=== PATIENT | male | born 1990 | race Two or more races ===

== ENCOUNTER 2018-08-30 07:16 | Emergency (ER) | payer OTHER ==
[2018-08-30 07:25] VITALS: BP 159/76
--- NOTE | 2018-08-30 07:37 | EDPHY ---
H & P Stated Complaint: hit in head with drill Time Seen by Provider: 08/30/18 07:36 - Personal History Current Tetanus/Diphtheria Vaccine: Yes Current Tetanus Diphtheria and Acellular Pertussis (TDAP): Yes - Medical/Surgical History Hx Asthma: No Hx Chronic Respiratory Disease: No Hx Diabetes: No Hx Cardiac Disease: No Hx Renal Disease: No Hx Cirrhosis: No Hx Alcoholism: No Hx HIV/AIDS: No Hx Splenectomy or Spleen Trauma: No Other PMH: denies - Social History Smoking Status: Current some day smoker Constitutional: Initial Vital Signs Temperature (C) 37 C 08/30/18 07:21 Heart Rate 71 08/30/18 07:21 Respiratory Rate 16 08/30/18 07:21 Blood Pressure 159/76 H 08/30/18 07:21 O2 Sat (%) 97 08/30/18 07:21 O2 Delivery Mode Room Air Allergies/Adverse Reactions: No Known Allergies Allergy (Unverified 08/30/18 07:21) Home Medications: Medication Instructions Recorded NK [No Known Home Meds] 08/30/18 Medical Decision Making ED Course/Re-evaluation: CHIEF COMPLAINT: Head injury yesterday HISTORY OF PRESENT ILLNESS: The patient is a 28 y/o male complaining of a headache and mood changes after hitting his head on a 150 pound drill, yesterday at work. He was wearing a hard hat on a ladder drilling, when the drill fell over and hit the patient. He did not fall of the ladder or lose consciousness as the drill hit the left side of his hard hat. He continued working but had a minor left-sided headache. When he returned home yesterday his noticed that the patient was "acting weird". This morning when he showed up to work, his coworkers noticed that the patient also "seemed off", so he was told to go to the emergency department. He denies using anticoagulants. No fever, neck pain, chest pain, shortness of breath, abdominal pain, nausea, vomiting, urinary or bowel complain, numbness, paresthesias. REVIEW OF SYSTEMS: A 10 point review of systems was performed and is negative with the exception of the elements mentioned in the history of present illness. PHYSICAL EXAM: HR, BP, O2 Sat, RR. Temp noted General Appearance: Alert, well hydrated, appropriate, and non-toxic appearing. Head: Atraumatic without scalp tenderness or obvious injury Eyes: Pupils equal, round, reactive to light and accommodation, EOMI, no trauma , no injection. Ears: Clear bilaterally, no perforation, normal landmarks Nose: Atraumatic, no rhinorrhea, clear. Throat: There is no erythema or exudates, no lesions, normal tonsils, mucus membranes moist. Neck: Supple, 2+ carotid upstroke, nontender, no lymphadenopathy. Respiratory: No retractions, no distress, no wheezes, and no accessory muscle use. Lungs are clear to auscultation bilaterally. Cardiovascular: Regular rate and rhythm, no murmurs, rubs, or gallops. Bilateral carotid, radial, dorsalis pedis, and posterior tibial pulses intact. Good capillary refill all extremities. Gastrointestinal: Abdomen is soft, nontender, non-distended, no masses, no rebound, no guarding, no peritoneal signs. Musculoskeletal: Normal active ROM of all extremities, atraumatic. Neurological: Alert, appropriate, and interactive. The patient has normal DTRs and non-focal cranial nerves, motor, sensory, and cerebellar exam. Skin: No rashes, good turgor, no nodules on palpation. Past medical history: Denies Past surgical history: Denies Family history: Denies Social history: Lives in [place], , employed with [employer] DIAGNOSTICS/PROCEDURES/CRITICAL CARE TIME: Not indicated. DIFFERENTIAL DIAGNOSIS: The differential diagnosis for the patient's head injury included but was not limited to concussion, skull fracture, intra-parenchymal contusion, subarachnoid , subdural and epidural hematoma. MEDICAL DECISION MAKING: The patient is a 28 y/o male presenting with a headache and mood changes after hitting his head on a 150 pound drill, yesterday at work. On exam he clinically has a concussion but otherwise has a normal exam. He does not meet [place] Head CT requirements. I have discussed not having a CT, which he is comfortable with. I have discussed concussion precautions and followup with Dr. Werner. Patient is comfortable with this plan. Departure - Departure Disposition: Home, Routine, Self-Care Clinical Impression: Head injury Qualifiers: Encounter type: initial encounter Qualified Code(s): S09.90XA - Unspecified injury of head, initial encounter Concussion Qualifiers: Encounter type: initial encounter Loss of consciousness presence/duration: without LOC Qualified Code(s): S06.0X0A - Concussion without loss of consciousness, initial encounter Condition: Good Instructions: Concussion (ED), Head Injury (ED) Additional Instructions: 1. Apply ice to sore areas and take 600mg ibuprofen every 6-8 hours or 650mg Tylenol every 4-6 hours for pain for the next few days. 2. Cognitive rest while symptoms are present. Avoid screen time including TV, phones, and computers until symptoms improve. 3. Physical rest while symptoms are present. Avoid any activities that could put you at further risk for a head injury until your symptoms resolve including contact sports, bicycling, etc. This may be 2 weeks or longer. 4. Follow up with Dr. Werner, head injury specialist, for unimproved symptoms over the next 10-14 days. It's not uncommon to experience fatigue, mood swings, and difficulty concentrating with concussions. 5. Return to the ED for severe headache, weakness or numbness on one side of your body, vision changes, or other worsening of condition. Referrals: YUDITH ROBERSON [Primary Care Provider] - As per Instructions Mirta Werner MD [Medical Doctor] - As per Instructions Stand Alone Forms: Work Comp Follow Up, Work Excuse Report Scribed for: Bony Zhao Report Scribed by: Suri Trammell Date of Report: 08/30/18 Time of Report: 07:40
== END 2018-08-30 08:00 | disposition home or self-care (01) ==
DX: S06.0X0A Concussion without loss of consciousness, initial encounter (principal); W22.8XXA Striking against or struck by other objects, initial encounter; Y99.0 Civilian activity done for income or pay; Y92.69 Other specified industrial and construction area as the place of occurrence of the external cause